=== PATIENT | female | born 1955 | race Caucasian/White ===

== ENCOUNTER 2016-11-09 11:29 | Emergency (ER) | payer OTHER ==
[2016-11-09 11:45] VITALS: BP 153/86
--- NOTE | 2016-11-09 12:37 | UC ---
Minor Trauma HPI - HPI Summary HPI Summary: 61 year old female with complaints of right posterior rib pain since 10/25/2016 s/p fall at her work, [employer]. Her right knee is improving but her right ribs continue to hurt and at times feels worse than when she received her injury. She is taking 1 aleve twice a day with moderate relief. Turning over in bed causes her the most pain. Denies chest pain, or difficulty breathing. - History of Current Complaint Chief Complaint: UCGeneralIllness Stated Complaint: rib injury Time Seen by Provider: 11/09/16 12:21 Hx Obtained From: Patient ?: No Onset/Duration: Sudden Onset, Lasting Weeks - 2, Still Present Severity Initially: Severe Severity Currently: None - at this time Pain Scale Used: 0-10 Numeric - 0 at this time Mechanism Of Injury: Blunt Trauma - fall from standing position to floor Aggravating Factor(s): Movement Alleviating Factor(s): OTC Meds Related History: Positive: Occupational Injury - Risk Factors Penetrating Injury Risk Factors: Negative Compartment Syndrome Risk Factors: Pain - Allergies/Home Medications Allergies/Adverse Reactions: Allergies Allergy/AdvReac Type Severity Reaction Status Date / Time No Known Allergies Allergy Verified 11/09/16 11:45 Home Medications: Home Medications ARIPiprazole TAB* [Abilify TAB*] 1 tab PO DAILY 11/09/16 [History Confirmed ] Bupropion HCl [Bupropion HCl ER] 1 tab PO BID 11/09/16 [History Confirmed ] Multiple Vitamin [Multi Vitamin] 1 tab PO DAILY 11/09/16 [History Confirmed ] Vitamin D 11/09/16 [History] PMH/Surg Hx/FS Hx/Imm Hx Previously Healthy: No - pain since fall on 10/25/2016 Endocrine History Of: Denies: Diabetes, Thyroid Disease Cardiovascular History Of: Denies: Cardiac Disorders, Hypertension - [place] Respiratory History Of: Denies: COPD, Asthma GI/ History Of: Denies: Ulcer Cancer History Of: Denies: Breast Cancer - Surgical History Surgical History: Yes Surgery Procedure, Year, and Place: Hysterectomy, Appendectomy, Tonsillectomy, Partial Right Knee Replacement - Family History Known Family History: Positive: Cardiac Disease - father of [place] at age 58, Hypertension Negative: Diabetes - Social History Occupation: Employed Full-time Lives: With Family Alcohol Use: Daily Alcohol Amount: 1-2 glasses of wine Substance Use Type: None Smoking Status (MU): Never Smoked Tobacco - Immunization History Most Recent Influenza Vaccination: season Review of Systems Constitutional: Negative Skin: Negative Eyes: Negative ENT: Negative Respiratory: Negative Cardiovascular: Negative Gastrointestinal: Negative Genitourinary: Negative Motor: Negative Neurovascular: Negative Musculoskeletal: Arthralgia - right posterior lateral ribs Neurological: Negative Psychological: Negative All Other Systems Reviewed And Are Negative: Yes Physical Exam Triage Information Reviewed: Yes Appearance: No Pain Distress, Well-Nourished, Ill-Appearing Vital Signs: Initial Vital Signs Temp 98.0 F 11/09/16 11:38 Pulse 61 11/09/16 11:38 Resp 16 11/09/16 11:38 BP 153/86 11/09/16 11:38 Pulse Ox 100 11/09/16 11:38 Vital Signs Reviewed: Yes Eyes: Positive: Conjunctiva Clear. Negative: Discharge ENT: Positive: Hearing grossly normal Neck: Positive: Supple, Nontender Respiratory: Positive: Lungs clear, Normal breath sounds - good air movement throughout to basis bilaterally Cardiovascular: Positive: RRR, No Murmur Abdomen Description: Positive: Nontender, No Organomegaly, Soft. Negative: CVA Tenderness (R), CVA Tenderness (L), Distended, Guarding Musculoskeletal: Positive: Strength Intact - able to walk with steady gait, ROM Intact - all 4 extremities Neurological: Positive: Alert, Muscle Tone Normal Psychological: Positive: Age Appropriate Behavior - pleasant and cooperative Skin: Negative: rashes, breakdown Minor Trauma Course/Dx - Course Course Of Treatment: xray of right ribs - negative. Education on splinting ribs and otc pain reliever. Follow up plan established - Differential Dx/Diagnosis Differential Diagnosis/HQI/PQRI: Contusion(s) Provider Diagnoses: Right Rib Contusion Discharge - Discharge Plan Condition: Stable Disposition: HOME Patient Education Materials: Rib Contusion (ED) Referrals: Lizy Rizzo MD [Primary Care Provider] - 2 Weeks Additional Instructions: Continue to take your aleve as directed. You may take two at bedtime if you are not able to get relief from one
--- NOTE | 2016-11-09 13:00 | RAD ---
Indication: RIGHT posterior lateral seventh, eighth, ninth rib pain post fall October 25, 2015. Comparison: No relevant prior exams available on the [facility]. Technique: 5 view RIGHT rib series obtained. Report: Negative for RIGHT rib fracture. Clear lungs and pleural spaces. Negative for pneumothorax. The heart, pulmonary vasculature, and mediastinal contours are unremarkable. IMPRESSION: Negative RIGHT unilateral rib series.
== END 2016-11-09 13:34 | disposition home or self-care (01) ==
LOC: UCEAST 11:29
DX: S20.211A Contusion of right front wall of thorax, initial encounter (principal); W19.XXXA Unspecified fall, initial encounter; Y93.9 Activity, unspecified; Y92.89 Other specified places as the place of occurrence of the external cause; Y99.0 Civilian activity done for income or pay
CPT/HCPCS: 99211; G0463

== ENCOUNTER 2017-09-19 09:41 | Emergency (ER) | payer OTHER ==
[2017-09-19 09:46] VITALS: BP 167/79
[2017-09-19] MEDS ORDERED: Ketorolac INJ* 60 MG/2 ML VIAL IM ONE (11:04)
[2017-09-19 11:15] LABS: Urine Bacteria 1+ (Absent); Urine Bilirubin Negative (Negative); Urine Glucose Negative (Negative); Urine Nitrite Negative (Negative)
--- NOTE | 2017-09-19 11:32 | ED ---
Back Pain - HPI Summary HPI Summary: Patient presents to the ED with CC of back pain after straining the left side of the low back yesterday while at work. Abrupt onset while lifting a box of books. Never has had back pain before. She went to [facility] who sent her here. She states to provider several hours after the incident, she was standing from a sitting position and had a loss of bladder function. This has never happened before. She states she is otherwise healthy. She denies limitations with ROM or weakness. Denies numbness, tingling, color or temperature changes. Denies other pain or symptoms including urinary burning, urgency, frequency. Denies loss of bowel function. Loss of bladder x 1 and has recently urinated without issue. Denies history of kidney stones. + history of UTI. - History of Current Complaint Chief Complaint: EDBackInjuryPain Stated Complaint: BACK PAIN COMING FROM WORK Time Seen by Provider: 09/19/17 09:47 Hx Obtained From: Patient Onset/Duration: Sudden Onset Onset/Duration: Started Days Ago Timing: Constant Back Pain Location: Is Discrete @ - left lower back Severity Initially: Mild Severity Currently: Mild Pain Intensity: 4 Pain Scale Used: 0-10 Numeric Character: Aching, Spasmodic Aggravating Symptom(s): Lifting, Bending, Walking Alleviating Symptom(s): Rest, Position Associated Signs And Symptoms: Positive: Bladder Incontinence Related History: Occupational Injury - Risk Factors AAA Risk Factors: Negative TAD Risk Factors: Negative Cauda Equina Risk Factors: Bladder Dysfunction Epidural Abscess Risk Factors: Negative - Allergies/Home Medications Allergies/Adverse Reactions: Allergies Allergy/AdvReac Type Severity Reaction Status Date / Time No Known Allergies Allergy Verified 11/09/16 11:45 PMH/Surg Hx/FS Hx/Imm Hx Previously Healthy: Yes Endocrine/Hematology History: Denies: Hx Diabetes, Hx Thyroid Disease Cardiovascular History: Denies: Hx Hypertension - [place] Respiratory History: Denies: Hx Asthma, Hx Chronic Obstructive Pulmonary Disease (COPD) GI History: Denies: Hx Ulcer - Cancer History Hx Chemotherapy: No Hx Radiation Therapy: No - Surgical History Surgery Procedure, Year, and Place: Hysterectomy, Appendectomy, Tonsillectomy, Partial Right Knee Replacement - Immunization History Hx Pertussis Vaccination: No Immunizations Up to Date: Unable to Obtain/Confirm Infectious Disease History: No Infectious Disease History: Denies: Hx Hepatitis, Hx Human Immunodeficiency Virus (HIV), History Other Infectious Disease, Traveled Outside the [place] in Last 30 Days - Family History Known Family History: Positive: Cardiac Disease - father of [place] at age 58, Hypertension Negative: Diabetes - Social History Occupation: Employed Full-time Lives: With Family Alcohol Use: Daily Alcohol Amount: 1-2 glasses of wine Hx Substance Use: No Substance Use Type: Reports: None Hx Tobacco Use: No Smoking Status (MU): Never Smoked Tobacco Review of Systems Constitutional: Negative Negative: Fever, Chills, Fatigue Eyes: Negative Cardiovascular: Negative Respiratory: Negative Positive: see HPI, incontinence - one episode Positive: Arthralgia - left lower back pain Neurological: Negative Negative: Weakness, Paresthesia, Numbness All Other Systems Reviewed And Are Negative: Yes Physical Exam Triage Information Reviewed: Yes Vital Signs On Initial Exam: Initial Vitals Temp Pulse Resp BP Pulse Ox 97.4 F 68 16 167/79 99 09/19/17 09:42 09/19/17 09:42 09/19/17 09:42 09/19/17 09:42 09/19/17 09:42 Vital Signs Reviewed: Yes Appearance: Positive: Well-Appearing, Well-Nourished Skin: Positive: Warm, Skin Color Reflects Adequate Perfusion Head/Face: Positive: Normal Head/Face Inspection Eyes: Positive: EOMI, YELENA, Conjunctiva Clear Neck: Positive: Supple, No Lymphadenopathy Respiratory/Lung Sounds: Positive: Clear to Auscultation, Breath Sounds Present Cardiovascular: Positive: Normal, RRR, Pulses are Symmetrical in both Upper and Lower Extremities Musculoskeletal: Positive: Pain @ - left lower back on deep palpation just superior to the illiac crest Neurological: Positive: Speech Normal Psychiatric: Positive: Normal Diagnostics - Vital Signs Vital Signs Temp Pulse Resp BP Pulse Ox 09/19/17 09:42 97.4 F 68 16 167/79 99 - Laboratory Lab Results: Lab Results 09/19/17 Range/Units 10:35 Urine Color Straw Urine Appearance Clear Urine pH 8.0 (5-9) Ur Specific Rush 1.005 L (1.010-1.030) Urine Protein Negative (Negative) Urine Ketones Negative (Negative) Urine Blood Negative (Negative) Urine Nitrate Negative (Negative) Urine Bilirubin Negative (Negative) Urine Urobilinogen Negative (Negative) Ur Leukocyte Esterase Trace H (Negative) Urine WBC (Auto) Trace(0-5/hpf) (Absent) Urine RBC (Auto) Absent (Absent) Ur Squamous Epith Cells Present H (Absent) Urine Bacteria 1+ H (Absent) Urine Glucose Negative (Negative) Lab Statement: Any lab studies that have been ordered have been reviewed, and results considered in the medical decision making process. Back Pain Course/Dx - Course Course Of Treatment: Back pain since yesterday. left lower back on deep palpation just superior to the illiac crestSensory function examined. Light tough, pain, vibration, WNL bilaterally to the lower extremities. Tendon reflexes, plantar responses WNL. Gait normal. Coordination and strength tested in upper and lower extremities WNL. Pronator drift not present. Sensations are equal on both extremities testing Thorough physical exam was performed, focusing on thoracic and lumbar special tests and ROM. Due to patient pain around injury, physical exam was limited. Limited ROM. Flip Test negative. Straight leg raise positive. Kernig test positive. Negative Babinksi. Hip flexion and extension, knee extension, dorsiflexion, great toe extension and plantar flexion intact. Rotating at hips limited d/t pain. Nerve roots L4- S2 reflexes intact. L1-S2 nerve root sensory intact. No saddle anesthesia. Gait normal. Dr. Mak called who suggested post-void residual and depending on conclusion, likely should not need MRI since this is unlikely an overflow bladder incontinence. Post-void residual 67. She is given muscle relaxers and toradol after first IM dose in ED. She is OK with discharge and plan. She is given note for work and will return for any worsening symptoms. D/t location, this is likely a muscle strain without spine involvement. - Diagnoses Differential Diagnosis/HQI/PQRI: Positive: Cauda Equina Syndrome, Compressive Cord Syndrome, Herniated Disc, Strain, Sprain Provider Diagnoses: Muscle strain Discharge - Discharge Plan Condition: Stable Disposition: HOME Prescriptions: Cyclobenzaprine TAB* [Flexeril TAB*] 10 mg PO BID PRN #10 tab PRN Reason: Pain Ketorolac TAB * [Toradol TAB *] 10 mg PO Q6H #16 tab Patient Education Materials: Muscle Spasm (ED) Forms: *Work Release Referrals: Lizy Rizzo MD [Primary Care Provider] - Additional Instructions: Dx. Muscle Strain Toradol - take 4x daily for 4 days. Do not take ibuprofen while on this medication. Flexeril: This medication is a muscle relaxant and can help relieve muscle spasms, muscle strain, or pain sensations. Flexeril can cause side effects that may impair your thinking or reactions. Be careful if you drive or do anything that requires you to be awake and alert. Avoid drinking alcohol, which can increase some of the side effects of Flexeril. Ibuprofen 600mg three times daily with meals for discomfort. Return to ED if symptoms worsen or fail to improve, notice worsening swelling, warmth or redness around the joint, develop fever, or pain is uncontrolled with OTC medications. Moist heat to the area for comfort. Warm showers or baths may improve symptoms. It is important to remain mobile as tolerated to prevent stiffening of the joints and delay healing. Follow up with your PCP. If symptoms remain for > 6 weeks, please seek special medical attention from an orthopedic physician
== END 2017-09-19 12:10 | disposition home or self-care (01) ==
LOC: ED 09:41
DX: S39.012A Strain of muscle, fascia and tendon of lower back, initial encounter (principal); M54.9 Dorsalgia, unspecified; X50.9XXA Other and unspecified overexertion or strenuous movements or postures, initial encounter; Y93.9 Activity, unspecified; Y92.9 Unspecified place or not applicable
CPT/HCPCS: 81003; 81015; 87086; 96372; 99282; J1885

== ENCOUNTER 2018-02-07 12:03 | Day surgery (SDC) | payer OTHER ==
[~2018-02-07 12:03] MED LIST: Acetaminophen TAB* 325 MG PO PRN; Buffered Lidocaine 0.9% SYRIN* 5 ML/SYR SYRINGE INTRADERM ONE; Cyclopentolate 1% OPTH.SOL* 2 ML BTL ONE; Ketorolac 0.5% OPHTH (NF) 0.5 % 5 ML BTL ONE; Lidocaine 2% EPI 1:200000 MPF*10-20 ML VIAL ONE; Neomycin/Polymy/Dex OPTH.SUSP* MAXITROL 0.1% 5 ML ONE; Phenylephrine 2.5% OPTH.SOL* 2 ML BTL ONE; Povidone Iodine 5% OPTH* 30 ML BTL ONE; Proparacaine 0.5% OPHTH.SOL* 15 ML BTL ONE; acetaZOLAMIDE TAB* 250 MG ONE
[2018-02-07] MEDS ORDERED: Midazolam* 1 MG/ML 2 ML VIAL (2 MG) ONE (13:47)
[2018-02-07] MEDS ORDERED: DiMENhydriNATE IV* 50 MG/ML VIAL ONE (14:05)
[2018-02-07 14:29] VITALS: BP 140/83
--- NOTE | 2018-02-07 22:08 | OP ---
DATE OF OPERATION: 02/07/18 - [facility] DATE OF : 59 SURGEON: Timmy Kebede MD PREOPERATIVE DIAGNOSIS: Cataract, right eye. POSTOPERATIVE DIAGNOSIS: Cataract, right eye. OPERATIVE PROCEDURE: Extracapsular cataract extraction with IOL, right eye. DESCRIPTION OF PROCEDURE: The patient was brought to the operating room after being given 1/2% Alcaine with epinephrine drops in the preoperative area. The eye was prepped and draped in the usual sterile fashion. Sterile drape and eyelid speculum were placed. Again, topical 1/2% Alcaine with epinephrine was given. A paracentesis incision was made at the 9 o'clock position with the No.75 blade. Clear cornea incision 2.2 x 2.2-mm was created at the 12 o'clock position starting at the anterior limbus using the 2.2-mm keratome. The anterior chamber was irrigated with 0.4 mL of 1% non-preservative intracameral lidocaine and filled with DisCoVisc. A capsulorrhexis was completed using the cystotome and the Utrata forceps. Hydrodissection was performed with balanced salt solution. The lens nucleus was removed with the Phacoemulsification handpiece without incident. Cortex was removed with the irrigation-aspiration handpiece. The capsular bag was re-inflated using DisCoVisc and an [id number] diopter implant was inserted with the shooter and to the 134-degree meridian. Horizontal reference mccann were made with the patient in the seated position in the preoperative area. The irrigation-aspiration handpiece was used to remove all residual DisCoVisc. The eye was refilled with balanced salt solution and the wound checked and found to be watertight. Topical Maxitrol drops were given. [id number]/[facility] #: [id number] MTDD
== END 2018-02-07 14:45 | disposition home or self-care (01) ==
LOC: OREAST 12:03
PROVIDERS: ATTEND Specialist
DX: H25.811 Combined forms of age-related cataract, right eye (principal); H17.89 Other corneal scars and opacities; G47.33 Obstructive sleep apnea (adult) (pediatric)
CPT/HCPCS: A9270-GY; J1240; J2250; V2787

== ENCOUNTER 2018-02-14 08:45 | Day surgery (SDC) | payer OTHER ==
[~2018-02-14 08:45] MED LIST changes: +Lidocaine 1% MPF* 2 ML VIAL ONE; +Midazolam* 1 MG/ML 2 ML VIAL (2 MG) ONE
[2018-02-14] MEDS ORDERED: Midazolam* 1 MG/ML 2 ML VIAL (2 MG) ONE (11:28)
[2018-02-14 11:53] VITALS: BP 151/76
--- NOTE | 2018-02-14 13:15 | OP ---
OPERATIVE NOTE: DATE OF OPERATION: 02/14/18 DATE OF : 59 SURGEON: Timmy Kebede M.D. PREOPERATIVE DIAGNOSIS: Cataract left eye. POSTOPERATIVE DIAGNOSIS: Cataract left eye OPERATIVE PROCEDURE: Extracapsular cataract extraction with intraocular lens implant left eye. PROCEDURE: The patient was brought to the operating room after being given 1/2% Alcaine with epineph rine drops in the preoperative area. The eye was prepped and draped in the usual sterile fashion. S terile drape and eyelid speculum were placed. Again, topical 1/2% Alcaine with epinephrine was given . A paracentesis incision was made at the 3 o'clock position with the No.75 blade. Clear cornea inc ision 2.2 x 2.2-mm was created at the 6 o'clock position starting at the anterior limbus using the 2. 2-mm keratome. The anterior chamber was irrigated with 0.4 mL of 1% non-preservative intracameral li docaine and filled with DisCoVisc. A capsulorrhexis was completed using the cystotome and the Utrata forceps. Hydrodissection was performed with balanced salt solution. The lens nucleus was removed wi th the Phacoemulsification handpiece without incident. Cortex was removed with the irrigation-aspira tion handpiece. The capsular bag was re-inflated using DisCoVisc and an [id number] diopter implant was inserted with the shooter oriented to the 20-degree meridian. Horizontal reference mccann were made with the patient in seated position in the preoperative area. The irrigation-aspiration handpiece wa s used to remove all residual DisCoVisc. The eye was refilled with balanced salt solution and the wo und checked and found to be watertight. Topical Maxitrol drops were given. [id number]/[facility] #: [id number]
== END 2018-02-14 12:06 | disposition home or self-care (01) ==
LOC: OREAST 08:45
PROVIDERS: ATTEND Specialist
DX: H25.812 Combined forms of age-related cataract, left eye (principal); H17.89 Other corneal scars and opacities; M19.90 Unspecified osteoarthritis, unspecified site; F32.9 Major depressive disorder, single episode, unspecified
CPT/HCPCS: A9270-GY; J2250; V2787